=== PATIENT | male | born 1975 | race Caucasian/White ===

== ENCOUNTER 2018-01-14 18:38 | Emergency (ER) | payer SELFPAY ==
[2018-01-14] MEDS ORDERED: LIDOCAINE 1% INJ-PF (10 MG/ML) 30 ML SDV INJ ONE (20:04)
--- NOTE | 2018-01-14 20:10 | ER Document Report ---
HPI - HPI Pain Level: 2 Notes: Patient is a 42-year-old male no significant past medical history who presents to the ED complaining of a laceration to the left superolateral knee status post injury with a chainsaw prior to arrival. Patient states that the chainsaw kicked back and cut his knee. Patient states he will need stitches, but does not think that anything is broken. He is been able to limp around without difficulties. Patient states that he does not have any pain that radiates. He has no associated numbness or tingling nor any paralysis or muscle weakness. He denies any drug allergies. Denies any IV drug use. He is unsure of his last tetanus. No other concerns or complaints at this time. Denies any headache, fever, URI, sore throat, chest pain, palpitations, syncope, cough, shortness of breath, wheeze, dyspnea, abdominal pain, nausea/vomiting/diarrhea, urinary retention, dysuria, hematuria, numbness/tingling, muscle paralysis/ weakness, or rash. - ROS Systems Reviewed and Negative: Yes All other systems reviewed and negative Past Medical History - Social History Smoking Status: Never Smoker Family History: Reviewed & Not Pertinent Vertical Provider Document - CONSTITUTIONAL Agree With Documented VS: Yes Notes: PHYSICAL EXAMINATION: GENERAL: Well-appearing, well-nourished and in no acute distress. LUNGS: Breath sounds clear to auscultation bilaterally and equal. No wheezes rales or rhonchi. HEART: Regular rate and rhythm without murmurs, rubs, gallops. Musculoskeletal: Lt knee: There is a superficial, linear, 5cm laceration noted to the superolateral left knee. No active bleeding. FROM to passive/active and flexion >90 w/o difficulty or tenderness. Strength 5+/5. N/V intact distal. No bony tenderness. No calf tenderness. Extremities: No cyanosis, clubbing, or edema b/l. Peripheral pulses 2+. Capillary refill less than 3 seconds. NEUROLOGICAL: Normal speech, normal gait. Normal sensory, motor exams PSYCH: Normal mood, normal affect. SKIN: see above. Warm, Dry, normal turgor, no rashes or lesions noted. - INFECTION CONTROL TRAVEL OUTSIDE OF THE [place] IN LAST 30 DAYS: No Course - Re-evaluation Re-evalutation: 01/14/18 21:30 Patient is an afebrile, well-hydrated, 42-year-old male who presents to the ED with a left knee laceration. Vitals are acceptable. PE is otherwise unremarkable for any neurovascular compromise, obvious tendon/ligament rupture, fracture/dislocation, septic joint. X-ray was unremarkable for any acute pathology. Wound was thoroughly irrigated and cleansed. Wound edges were approximated appropriately utilizing 8 simple interrupted sutures. Wound dressing was placed and wound instructions reviewed. Crutches were also provided. Tetanus was updated today. No other labs or imaging warranted at this time based on H&P. I will be sending home with prescription for Keflex. Conservative measures otherwise for symptoms. Recheck with your PCM in 2-3 days. Consider consult orthopedics. Return to the ED with any worsening/ concerning symptoms otherwise as reviewed in discharge. Patient is in agreement. - Vital Signs Vital signs: Temp Pulse Resp BP Pulse Ox 98.5 F 99 17 125/75 95 01/14/18 18:45 01/14/18 18:45 01/14/18 18:45 01/14/18 18:45 01/14/18 18:45 Procedures - Laceration/Wound Repair Left Knee Time completed: 21:25 Wound length (cm): 5 Wound's Depth, Shape: Superficial, Linear Laceration pre-procedure: Sterile PPE donned, Sterile drapes applied, Other - Chlorhexidine/saline Anesthetic type: 1% Lidocaine Volume Anesthetic (mLs): 8 Wound explored: Clean, No foreign body removed Irrigated w/ Saline (mLs): 200 Wound Debrided: None Wound Repaired With: Sutures Suture Size/Type: 4:0, Nylon Number of Sutures: 8 Layer Closure?: No Post-procedure wound care: Sterile dressing applied Post-procedure NV exam normal: Yes Complications: No Discharge - Discharge Clinical Impression: Laceration of left knee Qualifiers: Encounter type: initial encounter Qualified Code(s): S81.012A - Laceration without foreign body, left knee, initial encounter Condition: Stable Disposition: HOME, SELF-CARE Instructions: Antibiotic Ointment Protection ([facility]), Laceration Care ([facility]), Prophylactic Antibiotic ([facility]), Soap Cleansing ([facility]), Tetanus Immunization Given ([facility]) Additional Instructions: Do not shower or bathe for 24 hours. After 24 hours you may shower but no submersion of the wound under water. Keep the original dressing on the wound for 24 hours unless the drainage soaks through. Change the dressing daily thereafter and keep the knots of the suture material clean from any dried discharge. You may leave the wound open to the air once there is no more discharge. Return to the ED and/or your PCM in 2-3 days for a recheck. Monitor for any signs of worsening pain or redness, purulent drainage, streaks, and/or fever. Return to the ED if noticing any of the above symptoms or as needed. Take medications as directed. Your sutures will need to be removed in 10-12 days. Prescriptions: Cephalexin Monohydrate [Keflex 500 mg Capsule] 500 mg PO BID #20 capsule Referrals: [facility] [Provider Group] - Follow up as needed
--- NOTE | 2018-01-14 20:24 | RADIOLOGY REPORT (SQ) ---
EXAM DESCRIPTION: KNEE LEFT 4 VIEW COMPLETED DATE/TIME: 01/14/2018 8:09 pm REASON FOR STUDY: left knee pain/laceration s/p injury COMPARISON: None. NUMBER OF VIEWS: Four views. TECHNIQUE: AP, lateral, and both oblique radiographic images acquired of the left knee. LIMITATIONS: None. FINDINGS: MINERALIZATION: Normal. BONES: No acute fracture or dislocation. No worrisome bone lesions. JOINT: No effusion. SOFT TISSUES: No significant soft tissue swelling. No radio-opaque foreign body. IMPRESSION: No radiographic evidence of acute injury. TECHNICAL DOCUMENTATION: JOB ID: [id number] [employer]- All Rights Reserved Reading location - IP/workstation name: [email or web address]
[2018-01-14] MEDS ORDERED: CEPHALEXIN 500 MG CAPSULE PO ONE (21:31)
[2018-01-14] MEDS ORDERED: DIPH/PERTUSS(ACELL)/TETANUS VAC/PF 0.5 ML SYR (>=10YO) IM ONE (21:31)
[2018-01-14 21:52] VITALS: BP 125/82
== END 2018-01-14 21:59 | disposition home or self-care (01) ==
LOC: EDBD → ER 18:38
PROC: 0HQLXZZ Repair Left Lower Leg Skin, External Approach (ICD-10-PCS; principal; 2018-01-14)
DX: S81.012A Laceration without foreign body, left knee, initial encounter (principal); W29.3XXA Contact with powered garden and outdoor hand tools and machinery, initial encounter
CPT/HCPCS: 99283; 90471; 73564; 90715; 12002; J3490